=== PATIENT | female | born 1980 | race Caucasian/White ===

== ENCOUNTER 2022-08-29 16:29 | Emergency (ER) | payer MEDICAID, SELFPAY ==
[2022-08-29 16:30] VITALS: BP 124/74; PULSE 69; RESP 18; TEMP 36.3; O2SAT 99; BMI 26.6
--- NOTE | 2022-08-29 18:29 | EX.ED.DYSGE1 ---
HPI History of Present Illness Chief Complaint: Abd Pain Informant: patient Narrative Narrative: Patient presents with epigastric and right upper quadrant discomfort. It started somewhere around noon today. She states it is doing better now. In fact she just ate some potato chips. Patient states she started feeling ill on or Sunday. She had subjective fevers. She had some headache. She had mild nausea but no vomiting or pain. No sore throat. She states those symptoms are better. She did not go to work Sunday or Sunday but did go to work yesterday. She was at work today when she started to get epigastric pain. She had not eaten anything yet today. Patient also states she just started Lexapro 2 weeks ago and did not know if that was contributing to this but she had no symptoms until . Patient has had appendectomy and tubes tied but still has her gallbladder. She did state that this felt like reflux that she had an acid taste in her mouth and vomited some stomach acid. No blood. She is not nauseated now. Nothing clearly made this better or worse. PFSH PFSH Allergy/AdvReac Type Severity Reaction Status Date / Time No Known Allergies Allergy Verified 08/29/22 16:33 Social History Smoking Status: Never smoker ROS ROS ED Constitutional Constitutional ED: Reports subjective Eyes Eyes: Denies change in vision or diplopia ENT ENT ED: Denies sore throat Cardiovascular Cardiovascular: Denies chest pain or palpitations Respiratory/Chest Respiratory/Chest: Denies cough Gastrointestinal Gastrointestinal: Reports abdominal pain, nausea and vomiting; Denies constipation, diarrhea or melena Genitourinary Genitourinary ED: Denies dysuria or hematuria Musculoskeletal Musculoskeletal: Denies myalgias Integumentary Denies Abrasions or rash Neurologic Neurologic: Reports headache(s); Denies paresthesias or weakness Endocrine Endocrinology: Denies polydipsia or polyuria Hematologic/Lymphatic Hematologic/Lymphatic: Denies lymphadenopathy Allergic/Immunologic Allergic/Immunologic ED: Denies urticaria EXAM Physical Exam Const Vital Signs: 08/29/22 16:30 08/29/22 19:50 Temperature 97.4 F L Temperature Source Temporal Pulse Rate 69 Respiratory Rate 18 Blood Pressure 124/74 H Blood Pressure Mean 90 Pulse Ox 99 98 Oxygen Delivery Method Room Air Room Air Positive well nourished and well developed General Appearance ED: well developed and NAD HEENT Reports moist mucous membranes Eyes General Eye ED: Negative for scleral icterus Neck supple and no JVD Resp normal respiratory effort and clear to auscultation bilaterally Effort and Inspection: Negative for retractions Auscultation: Negative for rales, rhonchi or wheezes Cardio regular rate, regular rhythm and no murmurs GI GI Narrative: Very minimal right upper quadrant tenderness without rebound or guarding. Negative Heller sign Back/Spine no CVA tenderness Extremity normal to inspection General Extremety ED: Negative for tenderness Neuro oriented x3 Psych mental status grossly normal Skin no rashes or lesions noted MDM MDM MDM Narrative Medical decision making narrative: Patient CBC including white count hemoglobin platelets are all normal. Electrolytes are normal. Renal function is normal. Liver function test lipase all normal. Patient is feeling better still. She eats more chips. She is drink fluids. Her exam is really benign. I do not think she needs further imaging ultrasound and CT etc. at this time. She does request a work note. Lab Data Attestation: I reviewed the patient's lab results. Labs: Laboratory Results - last 24 hr 08/29/22 08/29/22 18:30 18:30 WBC 7.6 RBC 4.55 Hgb 13.0 Hct 38.9 MCV 85.5 MCH 28.6 MCHC 33.4 RDW Std Deviation 41.8 RDW Coeff of Veronica 13.3 Plt Count 318 MPV 10.2 Immature Gran % (Auto) 0.400 Neut % (Auto) 64.9 Lymph % (Auto) 24.4 Sunflower % (Auto) 7.1 Eos % (Auto) 2.9 Baso % (Auto) 0.3 Absolute Neuts (auto) 4.9 Absolute Lymphs (auto) 1.86 Nucleated RBC % 0 Sodium 138 Potassium 3.6 Chloride 103 Carbon Dioxide 30.0 Anion Gap 5 BUN 11 Creatinine 0.75 Estim Creat Clear Calc 93.34 Est GFR (MDRD) Af Amer 110 Est GFR (MDRD) Non-Af 91 BUN/Creatinine Ratio 14.7 Glucose 102 Calcium 9.3 Total Bilirubin 0.40 AST 25 ALT 33 Alkaline Phosphatase 79 Total Protein 7.6 Albumin 3.7 Globulin 3.9 Albumin/Globulin Ratio 0.9 Lipase 107 Discharge Plan Triage Chief Complaint: Abd Pain Other Complaint: Chest Pain Nausea/Vomiting ED Provider: Robbie Patel Dx/Rx/DC Orders Clinical Impression: Acute epigastric pain Instructions: ED Abdominal Pain Unkn Cause Fem Stand Alone Forms: Work / School Excuse Primary Care Provider: Care Physician,Ibeth Primary Referrals: Danuta Cast MD [Med Staff - Active Staff] - 3-5 Days if not improving NOT,DEFINED [Non-Staff] - Disposition Disposition: Home, Self Care
--- NOTE | 2022-08-29 18:30 | EKG12_ITS ---
Test Reason : CP Blood Pressure : / mmHG Vent. Rate : 067 BPM Atrial Rate : 067 BPM P-R Int : 200 ms QRS Dur : 090 ms QT Int : 446 ms P-R-T Axes : 060 010 056 degrees QTc Int : 471 ms Normal sinus rhythm Normal ECG Confirmed by WENDY MOTLEY, JOANNA ([id number]), publication editor AURORA CHANDRA ([id number]) on 08/30/2022 11:13:17 AM Referred By: PL Confirmed By:JOANNA NGUYEN MD
[2022-08-29 18:42] LABS: Absolute Lymphocyte Count 1.86 X10^3/uL (0.83-4.51); Absolute Neutrophil Count 4.9 X10^3/uL (2.0-7.7); Basophil# 0.02 X10^3/uL; Basophil% 0.3 % (0-1); Eosinophil# 0.22 X10^3/uL; Eosinophils% 2.9 % (0-5); Hematocrit 38.9 % (37-47); Lymphocyte # 1.86 X10^3/ul (0.83-4.51); Lymphocyte % 24.4 % (19-41); Mean Corp Hgb Conc 33.4 g/dL (32-36); Mean Corpuscular Hgb 28.6 pg (27.0-32.0); Mean Corpuscular Volume 85.5 fL (81-99); Mean Platelet Vol. 10.2 fl (6.2-12.0); Monocyte# 0.54 X10^3/uL; Monocyte% 7.1 % (0-10); NRBC Flagged by Analyzer 0 % (0-5); Neutrophil # 4.94 X10^3/uL (2.7-7.7); Neutrophil % 64.9 % (47-70); Platelet Count 318 K/mm3 (150-450); RBC Distribution Width CV 13.3 % (11.6-14.6); RBC Distribution Width SD 41.8 fl (35.1-43.9); Red Blood Count 4.55 M/mm3 (4.2-5.4); White Blood Count 7.6 K/mm3 (4.4-11.0)
[2022-08-29 19:02] LABS: ALB/GLOB Ratio 0.9 RATIO (0.9-2.4); AST(SGOT) 25 U/L (15-37); Alanine Aminotransfer ALT/SGPT 33 U/L (13-56); Albumin, Serum 3.7 g/dL (3.2-5.0); Alkaline Phosphatase 79 U/L (45-117); Anion Gap 5 (5-15); BUN 11 mg/dL (7-18); BUN/Creat Ratio 14.7 RATIO (10-20); Calcium,Total 9.3 mg/dL (8.5-10.1); Chloride 103 mmol/L (98-107); Creatinine, Serum 0.75 mg/dL (0.55-1.02); EST Glomerular Filtration Rate 91 mL/min (>60); Est Glom Filt Rate - Afr Amer 110 mL/min (>60); Estimated Creatinine Clearance 93.34 ml/min; Globulin 3.9 g/dL (2.2-4.2); Glucose 102 mg/dL (74-106); Lipase 107 U/L (73-393); Potassium 3.6 mmol/L (3.5-5.1); Protein, Total 7.6 g/dL (6.4-8.2); Sodium Level 138 mmol/L (136-145)
[2022-08-29 19:50] VITALS: O2SAT 98
== END 2022-08-29 20:39 | disposition home or self-care (01) ==
PROVIDERS: Emergency Provider Emergency Medicine; Visit Provider Emergency Medicine
DX: R10.13 Epigastric pain (principal)
CPT/HCPCS: 80053; 83690; 85025; 93005; 99283